=== PATIENT | female | born 1975 | race Caucasian/White ===

== ENCOUNTER 2017-08-30 17:22 | Emergency (ER) | payer MEDICAID, OTHER ==
[~2017-08-30] VITALS: Ht 170.2 cm; Wt 69.5 kg
[~2017-08-30 17:22] MED LIST: AMOX875T PO; HYDR-3307 PO; IBUP-1222 PO; OXYC-302 PO; TOPI50TA8 PO; VERA120T74 PO
[2017-08-30] MEDS ORDERED: PROCHLORPERAZINE 5 MG/ML, 2ML IVPush ONE (18:00)
[2017-08-30] MEDS ORDERED: DIPHENHYDRAMINE 50 MG/ML, 1ML IVPush ONE (18:00)
[2017-08-30] MEDS ORDERED: SODIUM CHLORIDE 0.9% 1,000ML IVBOLUS ONE (18:00)
[2017-08-30] MEDS ORDERED: DIPHENHYDRAMINE 50 MG/ML, 1ML ONE (18:16)
[2017-08-30] MEDS ORDERED: PROCHLORPERAZINE 5 MG/ML, 2ML ONE (18:16)
[2017-08-30] MEDS ORDERED: KETOROLAC 30 MG/1 ML ONE (18:25)
[2017-08-30] MEDS ORDERED: SUMATRIPTAN 6MG/0.5ML SQ ONE ×2 (18:25→18:30)
[2017-08-30] MEDS ORDERED: KETOROLAC 30 MG/1 ML IVPush ONE (18:30)
[2017-08-30 19:06] VITALS: BP 115/78
== END 2017-08-30 19:18 | disposition home or self-care (01) ==
LOC: ED 19:12
DX: G43.011 Migraine without aura, intractable, with status migrainosus (principal); F17.200 Nicotine dependence, unspecified, uncomplicated
CPT/HCPCS: 96361; 96372; 96374; 96375; 99284; J0780; J1200; J1885; J3030; J7030

== ENCOUNTER → 2018-04-05 | Outpatient (CLI) | payer MEDICAID ==
[~2018-04-05] MED LIST changes: +AMIT50TA PO; +ARIP10TA33 PO; +BUTA1CAP28 PO; +DULO30CA2 PO; +LEVE500T53 PO
== END ==
LOC: STAR 09:44
PROVIDERS: ATTEND Surgery
DX: Z02.9 Encounter for administrative examinations, unspecified (principal)

== ENCOUNTER 2018-04-09 06:03 | Day surgery (SDC) | payer MEDICAID ==
[~2018-04-09] VITALS: Ht 170.2 cm; Wt 72.0 kg
[2018-04-09] MEDS ORDERED: BUPIVACAINE/PF 0.25% ONE (06:13)
[2018-04-09] MEDS ORDERED: EPINEPHRINE 1 MG/ML, 1ML ONE (06:13)
[2018-04-09 06:33] VITALS: BP 121/87
[2018-04-09] MEDS ORDERED: LACTATED RINGERS 1,000 ML IV SCH (06:36)
[2018-04-09] MEDS ORDERED: SCOPOLAMINE PATCH, 1.5MG PATCH.TD72 TD ONE (07:00)
[2018-04-09] MEDS ORDERED: OxyconTIN ER 10 MG TAB.ER PO ONE (07:00)
[2018-04-09] MEDS ORDERED: GABAPENTIN 300 MG CAPSULE PO ONE (07:00)
[2018-04-09] MEDS ORDERED: ACETAMINOPHEN 500 MG TABLET PO ONE (07:00)
[2018-04-09] MEDS ORDERED: ONDANSETRON ODT 8 MG PO ONE (07:00)
[2018-04-09] MEDS ORDERED: MIDAZOLAM 1 MG/ML, 2ML ONE (07:01)
[2018-04-09] MEDS ORDERED: FENTANYL PF 250 MCG/5ML ONE (07:01)
[2018-04-09 07:02] LABS: HCG UR SG 1.019 (1.003-1.030)
[2018-04-09] MEDS ORDERED: SUCCINYLCHOLINE 20 MG/ML, 10ML ONE (07:24)
[2018-04-09] MEDS ORDERED: NEOSTIGMINE 1 MG/ML, 10ML ONE (07:24)
[2018-04-09] MEDS ORDERED: GLYCOPYRROLATE 0.2MG/1ML, 5ML ONE (07:24)
[2018-04-09] MEDS ORDERED: DEXAMETHASONE 4 MG/ML, 1ML ONE (07:24)
[2018-04-09] MEDS ORDERED: PROPOFOL 10 MG/ML, 20ML ONE (07:24)
[2018-04-09] MEDS ORDERED: CEFAZOLIN 1,000 MG ONE (07:24)
[2018-04-09] MEDS ORDERED: ROCURONIUM 10MG/ML,5ML ONE (07:24)
[2018-04-09] MEDS ORDERED: FENTANYL PF 100 MCG/2ML IV PRN (08:00)
[2018-04-09] MEDS ORDERED: PROMETHAZINE 25 MG/ML, 1ML IV PRN (08:00)
[2018-04-09] MEDS ORDERED: ONDANSETRON ODT 8 MG PO PRN (08:00)
[2018-04-09] MEDS ORDERED: hydrALAzine 20 MG/ML, 1ML IV PRN (08:00)
[2018-04-09] MEDS ORDERED: OXYcodone 5 MG/5 ML ORAL.SOL UDC PO PRN (08:00)
[2018-04-09] MEDS ORDERED: MEPERIDINE/PF 25MG/0.5ML IVPush PRN (08:00)
[2018-04-09] MEDS ORDERED: LABETALOL 5MG/ML, 20ML IV PRN (08:00)
[2018-04-09] MEDS ORDERED: PROMETHAZINE 12.5 MG SUPP PR PRN (08:00)
[2018-04-09] MEDS ORDERED: MIDAZOLAM 1 MG/ML, 2ML IV PRN (08:00)
[2018-04-09] MEDS ORDERED: MORPHINE SULFATE 4 MG/ML, 1ML IVPush PRN (08:00)
[2018-04-09] MEDS ORDERED: ALBUTEROL SULFATE 2.5 MG/3 ML NPPB PRN (08:00)
[2018-04-09] MEDS ORDERED: morphine SULFATE 10 MG/ML, 1ML ONE (08:59)
[2018-04-09] MEDS ORDERED: HYDROcodone/APAP 5/325 TABLET PO PRN (09:00)
[2018-04-09] MEDS ORDERED: morphine SULFATE 10 MG/ML, 1ML IVPush PRN (09:00)
== END 2018-04-09 10:15 ==
LOC: OUT 06:03
PROVIDERS: ATTEND Surgery
DX: K43.2 Incisional hernia without obstruction or gangrene (principal); F32.9 Major depressive disorder, single episode, unspecified; F17.210 Nicotine dependence, cigarettes, uncomplicated; G43.909 Migraine, unspecified, not intractable, without status migrainosus; Z98.890 Other specified postprocedural states; Z72.89 Other problems related to lifestyle; Z88.5 Allergy status to narcotic agent; Z88.8 Allergy status to other drugs, medicaments and biological substances
CPT/HCPCS: 49560; 49568; 81025; J0171; J0330; J0690; J1100; J2250; J2270; J2704; J2710; J3010; J3490; J7120; Q0162; C1781